=== PATIENT | female | born 1990 | race Two or more races ===

== ENCOUNTER 2017-01-10 19:37 | Emergency (ER) | payer OTHER ==
[~2017-01-10] VITALS: Ht 165.1 cm; Wt 58.1 kg
--- NOTE | 2017-01-10 19:45 | NUR ---
To bed 6 a 26 yo female bibself with c/o left hand 4th digit pain/ swelling x 1 day s/p football injury. Distal is + CMS. vss. Initiated comfort measures. Awaiting for er md flannery.
--- NOTE | 2017-01-10 22:12 | NUR ---
Splint placed on the left ring finger per [employer] Erickson's order. Patient discharged to home in stable condition. Written and verbal after care instructions given. Patient verbalizes understanding of instruction. Patient is ambulatory with steady gait. No further complaints.
[2017-01-10 22:13] VITALS: BP 120/68
== END 2017-01-10 22:14 | disposition home or self-care (01) ==
LOC: ER 19:37
DX: S63.615A Unspecified sprain of left ring finger, initial encounter (principal); W23.0XXA Caught, crushed, jammed, or pinched between moving objects, initial encounter; Y93.61 Activity, american tackle football; Y92.89 Other specified places as the place of occurrence of the external cause; Y99.8 Other external cause status
CPT/HCPCS: 29130; 73140; 99284; A4606; Z7610